=== PATIENT | male | born 1990 | race Caucasian/White ===

== ENCOUNTER 2017-07-01 11:14 | Emergency (ER) | payer OTHER ==
[~2017-07-01] VITALS: Ht 167.6 cm; Wt 68.0 kg
[2017-07-01 11:19] VITALS: BP 116/69
--- NOTE | 2017-07-01 11:25 | NUR ---
PATIENT PRESENTS TO ED WITH C/O SPIDER BITE RT LATERAL;PUS NOTED ON RT FOOT;ERYTHMEA HEEL PAIN 10/10 X 3 DAYS;DENIES ANY MEDICAL HX; DENIES N/V/D; SKIN IS PINK/WARM/DRY; AAOX4;LUNGS CLEAR BL; HR EVEN AND REGULAR; PT DENIES ANY CP, SOB, OR COUGH AT THIS TIME; PATIENT STATES PAIN OF 10/10 AT THIS TIME;PATIENT POSITIONED FOR COMFORT; ER MD EVALUATING PT AT IS TIME.
[2017-07-01] MEDS ORDERED: LIDOCAINE/EPI 2% 1:100000 20 ML VIAL INJ ONE (11:30)
[2017-07-01] MEDS ORDERED: HYDROcodone/APAP 5/325 MG 1 TAB TAB PO ONE (12:10)
[2017-07-01 12:37] VITALS: BP 123/78
--- NOTE | 2017-07-01 12:37 | NUR ---
Patient discharged with v/s stable. Written and verbal after care instructions given and explained. Patient alert, oriented and verbalized understanding of instructions. Wheel Chair Assisted with to car. All questions addressed prior to discharge. ID band removed. Patient advised to follow up with PMD. Rx of ibuprofen and doxycycline given. Patient educated on indication of medication including possible reaction and side effects. Opportunity to ask questions provided and answered.
== END 2017-07-01 12:37 | disposition home or self-care (01) ==
LOC: MED 11:14
DX: L03.115 Cellulitis of right lower limb (principal); F17.210 Nicotine dependence, cigarettes, uncomplicated
CPT/HCPCS: 10060; 99283; J2001